=== PATIENT | female | born 2000 | race Caucasian/White ===

== ENCOUNTER 2021-10-16 23:43 | Emergency (ER) | payer OTHER ==
[2021-10-17 00:44] LABS: HEMOGLOBIN 14.1 gm/dl (12.3-15.3); RED BLOOD COUNT 4.68 M/UL (4.00-5.10); WHITE BLOOD COUNT 8.8 K/UL (4.5-11.0)
[2021-10-17 00:53] LABS: BUN/CREATININE RATIO 14 (0-10)
[2021-10-17] MEDS ORDERED: NAPROXEN500 MG PO (02:57)
== END 2021-10-17 03:15 | disposition home or self-care (01) ==
LOC: ER1 23:43
DX: R07.89 Other chest pain (principal); Z88.0 Allergy status to penicillin
CPT/HCPCS: 71045; 80053; 82550; 82553; 84484; 85025; 85379; 93005; 96374; 99285; J1885